=== PATIENT | male | born 1975 | race Caucasian/White ===

== ENCOUNTER 2018-04-13 09:00 | Emergency (ER) | payer BC ==
--- NOTE | 2018-04-14 09:00 | EDM.PDOC ---
ED HPI GENERAL MEDICAL PROBLEM - General Stated Complaint: ALLERGIC RX Time Seen by Provider: 04/13/18 09:55 Source of Information: Reports: Patient History Limitations: Reports: No Limitations - History of Present Illness INITIAL COMMENTS - FREE TEXT/NARRATIVE: Pt is a 42 year old male who presents to the emergency room with c/o upper lip swelling and left side of upper face swelling. He noted this around 11PM last night. The swelling wood increase in area. No itching in the qian. No fever or chills. No nasal congestion. Pt is not sure of any new exposure to chemicals, detergents, perfumes, fabric softeners or food. He is not on any medications. Was fishing in [place]. No hoarseness of voice or loss of voice. No breathing difficulty. No difficulty swallowing, no tongue swelling. Onset Date: 04/12/18 Duration: Other (unchanged) Location: Reports: Face Severity: Mild Context: Reports: Lifting Associated Symptoms: Reports: Rash. Denies: Confusion, Chest Pain, Cough, Diaphoresis, Fever/Chills, Headaches, Nausea/Vomiting, Seizure, Shortness of Breath, Syncope, Weakness ED ROS GENERAL - Review of Systems Review Of Systems: See Below Constitutional: Denies: Fever, Chills, Weakness HEENT: Denies: Rhinitis, Throat Pain, Throat Swelling Respiratory: Denies: Shortness of Breath, Cough, Sputum Cardiovascular: Denies: Chest Pain, Lightheadedness GI/Abdominal: Denies: Abdominal Pain, Nausea, Vomiting Musculoskeletal: Denies: Joint Pain, Joint Swelling Skin: Reports: Rash. Denies: Bruising, Pruritis ED EXAM, GENERAL - Physical Exam Exam: See Below Exam Limited By: No Limitations General Appearance: Alert, WD/WN, No Apparent Distress Eye Exam: Bilateral Eye: EOMI, PERRL Ears: Normal External Exam, Normal Canal, Hearing Grossly Normal, Normal TMs Ear Exam: Bilateral Ear: Auricle Normal, Canal Normal, TM normal Nose: Normal Inspection, Normal Mucosa, No Blood Throat/Mouth: Normal Inspection, Normal Teeth, Normal Gums, Normal Oropharynx, Normal Voice, No Airway Compromise, Other (minimal swellingof the upper lip) Head: Facial Swelling (there is small area about 4cm by 4 cm in the zygomatic region, mild erythema) Neck: Normal Inspection, Supple, Non-Tender, Full Range of Motion Respiratory/Chest: No Respiratory Distress, Lungs Clear, Normal Breath Sounds, No Accessory Muscle Use, Chest Non-Tender Cardiovascular: Normal Peripheral Pulses, Regular Rate, Rhythm, No Edema, No Gallop, No JVD, No Murmur, No Rub Course - Vital Signs Text/Narrative:: Pt reassured, there is very small area of swelling of the upper lip and left upper face ( Zygomatic region). The rash has not spread and has been unchanged. This might be mild contact dermatitis. Pt reassured advised to use Benadryl 50mg 3 times daily and Zantac 150mg twice daily. On further questioning patient, he claims that he has been having this problem for about 3 months now. He has been to fruit or nut farmer and not found anything wrong. Was told to use zyrtec 10mg daily. Return to emergency room, if he develops loss of voice or hoarseness of voice, difficulty breathing or swallowing. Departure - Departure Time of Disposition: 10:15 Disposition: Home, Self-Care 01 Condition: Fair Clinical Impression: Contact dermatitis - Discharge Information *PRESCRIPTION DRUG MONITORING PROGRAM REVIEWED*: Not Applicable *COPY OF PRESCRIPTION DRUG MONITORING REPORT IN PATIENT PADMINI: Not Applicable Referrals: PCP,Unknown [Primary Care Provider] - - Problem List & Annotations (1) Contact dermatitis SNOMED Code(s): 83159925 Code(s): L25.9 - UNSPECIFIED CONTACT DERMATITIS, UNSPECIFIED CAUSE Status: Acute Current Visit: Yes - Problem List Review Problem List Initiated/Reviewed/Updated: Yes - Assessment/Plan Assessment:: Contact dermatitis with h/o chronic urticaria Plan: Pt reassured, there is very small area of swelling of the upper lip and left upper face ( Zygomatic region). The rash has not spread and has been unchanged. This might be mild contact dermatitis. Pt reassured advised to use Benadryl 50mg 3 times daily and Zantac 150mg twice daily. On further questioning patient, he claims that he has been having this problem for about 3 months now. He has been to fruit or nut farmer and not found anything wrong. Was told to use zyrtec 10mg daily. Return to emergency room, if he develops loss of voice or hoarseness of voice, difficulty breathing or swallowing.
== END 2018-04-13 09:20 | disposition home or self-care (01) ==
LOC: LB.ED 09:00
DX: L25.9 Unspecified contact dermatitis, unspecified cause (principal)
CPT/HCPCS: 99282